=== PATIENT | female | born 1970 | race Two or more races ===

== ENCOUNTER 2017-02-04 13:35 | Day surgery (SDC) | payer BC ==
[~2017-02-04] VITALS: Ht 162.6 cm; Wt 76.0 kg
[2017-02-04] VITALS (12 sets, daily range): BP systolic 97–154; BP diastolic 54–86; PULSE 78–106; RESP 14–56; Ht 162.6 cm; Wt 76.0 kg
[~2017-02-04 13:35] MED LIST: BENA20TA48 PO; BENZ0.5T3 PO; CITA20SO PO; CLZP100T PO; DIVA-16 PO; FER325 PO; FOLI-49 PO; METF500T4 PO; PROP10TA6 PO; SIMV40TA7 PO; ZIPR80CA9 PO; [UNRECOGNIZED DRUG - CODE] PAL
[2017-02-04] MEDS ORDERED: BUPIVACAINE 0.5% (SDV) 30 ML INJ ONE (14:31)
[2017-02-04] MEDS ORDERED: LIDOCAINE 1% (MPF) 30 ML INJ ONE (14:31)
[2017-02-04] MEDS ORDERED: POLYMYXIN/BACITRACIN 1L IRRIG ONE ×2 (14:31→19:27)
[2017-02-04] MEDS ORDERED: DOCU250C58 PO (14:35)
[2017-02-04] MEDS ORDERED: NEOSTIGMINE 3 MG/3 ML SYRINGE ONE ×2 (15:08→18:00)
[2017-02-04] MEDS ORDERED: LIDOCAINE 2% (SDV) 5 ML INJ ONE (15:08)
[2017-02-04] MEDS ORDERED: PROPOFOL 20 ML ONE (15:08)
[2017-02-04] MEDS ORDERED: SUCCINYLCHOLINE CHLORIDE 100 MG/5 ML SYG IV ONE (15:08)
[2017-02-04] MEDS ORDERED: ROCURONIUM 50 MG INJ ONE (15:08)
[2017-02-04] MEDS ORDERED: GLYCOPYRROLATE 0.4 MG INJ ONE ×2 (15:08→18:00)
[2017-02-04] MEDS ORDERED: MEPERIDINE 100 MG INJ ONE (15:09)
--- NOTE | 2017-02-04 15:19 | HPN ---
Date/Time of Note Date/Time of Note DATE: 02/04/17 TIME: 15:18 Interval H&P Admission Note Pt. seen H&P reviewed: No system changes AMIRAH GLASER Feb 04, 2017 15:19
[2017-02-04] MEDS ORDERED: ONDANSETRON 4 MG INJ IV PRN (15:30)
[2017-02-04] MEDS ORDERED: LABETALOL HCL 20MG INJ IV PRN (15:30)
[2017-02-04] MEDS ORDERED: OXYCODONE/ACETAMINOPHEN (5/325) TAB PO PRN ×3 (15:30→20:00)
[2017-02-04] MEDS ORDERED: DIPHENHYDRAMINE 50 MG INJ IV PRN (15:30)
[2017-02-04] MEDS ORDERED: EPHEDrine SULFATE 50 MG/5 ML SYG IV PRN (15:30)
[2017-02-04] MEDS ORDERED: MEPERIDINE 25 MG INJ IV PRN (15:30)
[2017-02-04] MEDS ORDERED: MIDAZOLAM 1 MG/ML 2 ML INJ IV PRN (15:30)
[2017-02-04] MEDS ORDERED: HYDROmorphONE (0.2 MG/ML) 10ML SYG IV PRN ×3 (15:30)
[2017-02-04] MEDS ORDERED: FENTAnyl 50 MCG/ML VIAL IV PRN ×3 (15:30)
[2017-02-04] MEDS ORDERED: METOCLOPRAMIDE 10 MG INJ IV PRN (15:30)
[2017-02-04] MEDS ORDERED: hydrALAzine 20 MG INJ IV PRN (15:30)
[2017-02-04] MEDS ORDERED: hydrALAzine 20 MG INJ ONE (16:21)
[2017-02-04] MEDS ORDERED: LABETALOL HCL 20MG INJ ONE (17:16)
[2017-02-04] MEDS ORDERED: VANCOMYCIN 1 GM (PMX) 250 ML ONE (17:37)
[2017-02-04] MEDS ORDERED: METOCLOPRAMIDE 10 MG INJ ONE ×2 (17:59→20:14)
[2017-02-04] MEDS ORDERED: ONDANSETRON 4 MG INJ ONE (17:59)
[2017-02-04] MEDS ORDERED: ROPIVACAINE 0.5 % 30 ML VIAL ONE (18:33)
[2017-02-04] MEDS ORDERED: CEFAZOLIN 1 GM INJ ONE ×3 (18:35)
--- NOTE | 2017-02-04 19:01 | OPPN ---
Date/Time of Note Date/Time of Note DATE: 02/04/17 TIME: 18:59 Operative Report Preoperative Diagnosis Right distal humeral shaft fracture, radial nerve palsy Postoperative Diagnosis Right distal humeral shaft fracture, radial nerve palsy Operation/Procedure Performed Open reduction internal fixation of right distal humeral shaft fracture, radial nerve neurolysis Surgeon see signature line nurse practitioner physicians assistant none Anesthesia: general Estimated blood loss: 10 - 50 ml's Transfusion Required none Specimen none Grafts/Implants none Complications none AMIRAH GLASER Feb 04, 2017 19:01
--- NOTE | 2017-02-04 19:01 | OPPN ---
Date/Time of Note Date/Time of Note DATE: 02/04/17 TIME: 18:59 Operative Report Preoperative Diagnosis Right distal humeral shaft fracture, radial nerve palsy Postoperative Diagnosis Right distal humeral shaft fracture, radial nerve palsy Operation/Procedure Performed Open reduction internal fixation of right distal humeral shaft fracture, radial nerve neurolysis Surgeon see signature line assistant pressman none Anesthesia: general Estimated blood loss: 10 - 50 ml's Transfusion Required none Specimen none Grafts/Implants none Complications none AMIRAH GLASER Feb 04, 2017 19:01
--- NOTE | 2017-02-04 19:01 | OPPN ---
Date/Time of Note Date/Time of Note DATE: 02/04/17 TIME: 18:59 Operative Report Preoperative Diagnosis Right distal humeral shaft fracture, radial nerve palsy Postoperative Diagnosis Right distal humeral shaft fracture, radial nerve palsy Operation/Procedure Performed Open reduction internal fixation of right distal humeral shaft fracture, radial nerve neurolysis Surgeon see signature line corporate law assistant none Anesthesia: general Estimated blood loss: 10 - 50 ml's Transfusion Required none Specimen none Grafts/Implants none Complications none AMIRAH GLASER Feb 04, 2017 19:01
--- NOTE | 2017-02-04 21:18 | OPR ---
DATE OF OPERATION: 02/04/2017 SURGEON: Lm Bullock MD ANESTHESIA: General. PREOPERATIVE DIAGNOSIS: 1. Right distal humeral shaft fracture with comminution and early callus formation. 2. Right radial nerve palsy. POSTOPERATIVE DIAGNOSIS: 1. Right distal humeral shaft fracture with comminution and early callus formation. 2. Right radial nerve palsy. OPERATION PERFORMED: 1. Open reduction, internal fixation, right distal humeral shaft fracture with comminution and early callus formation. 2. Right radial nerve neurolysis at the level of the humerus/arm. OPERATIVE FINDINGS AT SURGERY: 1. Comminuted shortened distal humerus fracture with early callus formation requiring extensive debridement to free up the fracture fragments. 2. Radial nerve interposition within the fracture site. INDICATION FOR PROCEDURE: A 46-year-old female with injury to the right distal humerus. She was seen in clinic and diagnosed with a displaced distal humerus fracture, as well as a radial nerve palsy. We discussed the options. The patient elected to proceed with surgical intervention. Understanding the risks and benefits. OPERATIVE PROCEDURE: The patient was in the preoperative area. All further questions were answered. Again, she gave informed consent understanding the risks and benefits. She was taken to the operative suite and placed in supine position. She was placed under general anesthesia and 2 grams of Ancef IV given. Right upper extremity was prepped with ChloraPrep stick and draped in usual sterile fashion. A sterile tourniquet was placed on the upper arm and Esmarch bandage was used to exsanguinate the extremity and tourniquet inflated to 250 mmHg. A posterior longitudinal incision over the distal humerus was utilized with sharp dissection carried down through skin and subcutaneous tissue. The triceps fascia was identified and was incised along its midline. The triceps musculature was retracted medially and laterally and at the musculotendinous junction the radial nerve was identified which had found its way into the fracture site with callus formation. It was freed up from the fracture and retracted gently. The fracture fragments were identified individually and were freed up from their significant callus which had already formed. The large distal and proximal fragments were reduced which took great difficulty due to the shortening of the fracture fragments over time. A preliminary 1.3 mm plate with 2.3 mm screws Acumed were placed across the fracture site for a preliminary fixation. I was pleased with the fracture alignment and stability, and took the butterfly fragment from the medial aspect and keyed it into the appropriate position, and an additional 1.3 mm plate with 2.3 mm screws was placed across the butterfly fragment to secure that. Both plates were Acumed. A lateral distal humerus Acumed plate was placed across the fracture site and was secured. Appropriately sized cortical and locking screws were placed. Attention was then turned back to the medial column and an additional 1.3 mm Acumed plate was placed across the fracture site with 2.3 mm locking and nonlocking screws. The elbow was ranged and there was absolutely no motion at the fracture site. I was pleased with the appearance and final x-ray imaging showed appropriate bone alignment and hardware positioning. Wound was copiously irrigated. The triceps fascia layer was closed with 3-0 Monocryl followed by 3-0 Monocryl for the deep dermal layer, and boby for the skin. Tourniquet was deflated after 126 minutes and patient was awakened from anesthesia. She was taken to the postoperative suite in stable condition. Tolerated the procedure well without complication. SPECIMENS: None. ESTIMATED BLOOD LOSS: 50 mL. COUNTS: Sponge, instrument, needle counts were correct. TOURNIQUET TIME: 126 minutes. FLUOROSCOPIC IMAGES: 12. CONDITION ON DISCHARGE: Stable. Dictated By: Lm Bullock MD /[email or web address] /Document#: [id number] JOCELYN
--- NOTE | 2017-02-05 08:18 | RADRPT ---
PROCEDURE: Intraoperative imaging of the right humerus with fluoroscopy. CLINICAL INDICATION: Right arm pain. Intraoperative. TECHNIQUE: Images of the right humerus were obtained in the operating room with an image intensifi er. No radiologist was in attendance. Fluoroscopy time is 18 seconds and 9 images were obtained. COMPARISON: No prior study is available for comparison. FINDINGS: Images demonstrate open reduction and internal fixation of the fracture of the proximal shaft of the right humerus with multiple plates and multiple screws. IMPRESSION: 1. Intraoperative imaging of the right humerus. RPTAT: QQ .Homar Vargas MD, MD Date Time Electronically viewed and signed by .Homar Vargas MD, MD on 02/05/2017 08:18 .R/
== END 2017-02-04 20:29 | disposition home or self-care (01) ==
LOC: SDS 13:35
PROVIDERS: ATTEND Orthopaedic Surgery Hand Surgery
DX: S42.351A Displaced comminuted fracture of shaft of humerus, right arm, initial encounter for closed fracture (principal); G56.31 Lesion of radial nerve, right upper limb; I10 Essential (primary) hypertension; E11.9 Type 2 diabetes mellitus without complications; E78.5 Hyperlipidemia, unspecified; D64.9 Anemia, unspecified; X58.XXXA Exposure to other specified factors, initial encounter; Y92.89 Other specified places as the place of occurrence of the external cause; Y93.89 Activity, other specified
CPT/HCPCS: 24515; 64708; 73060; 82962; 84703; J0360; J0690; J2175; J2405; J2710; J2765; J2795; J3370; Z7512; Z7610